=== PATIENT | female | born 1990 ===

== ENCOUNTER 2016-11-17 13:11 | Emergency (ER) | payer OTHER ==
[2016-11-17 15:10] LABS: RBC URINE 1 /hpf (0-3); URINE BILIRUBIN NEGATIVE (NEGATIVE); URINE BLOOD NEGATIVE (NEGATIVE); URINE COLOR Yellow (YELLOW); URINE GLUCOSE (UA) NORMAL (Normal); URINE KETONE NEGATIVE (NEGATIVE); URINE LEUKOCYTE ESTERASE 2+ Leu/uL (Negative); URINE PROTEIN NEGATIVE (NEGATIVE); URINE UROBILINOGEN NORMAL mg/dL (0.2-1.0); WBC URINE 16 /hpf (0-5)
--- NOTE | 2016-11-17 15:17 | C.PDOC ---
History Of Present Illness 26-year-old female, with no significant PMHx, presents to the ED for evaluation of pelvic pain which began when she was at work this morning. Patient denies fever, chills, nausea, vomiting, constipation, dysuria, hemturia. Patient states her last menstrual period was at the end of October, but she experienced an episode of bleeding again in the beginning of November. Time Seen by Provider: 11/17/16 14:19 Chief Complaint (Nursing): Abdominal Pain History Per: Patient History/Exam Limitations: no limitations Onset/Duration Of Symptoms: Hrs Current Symptoms Are (Timing): Still Present Location Of Pain/Discomfort: Other (pelvic pain ) Radiation Of Pain To:: None Quality Of Discomfort: "Pain" Associated Symptoms: denies: Fever, Chills, Nausea, Vomiting, Constipation, Urinary Symptoms (dysuria, hematuria ) Abnormal Vaginal Bleeding: No Past Medical History Reviewed: Historical Data, Nursing Documentation, Vital Signs Vital Signs: Last Vital Signs Temp 99.0 F 11/17/16 14:00 Pulse 98 H 11/17/16 14:00 Resp 18 11/17/16 14:00 BP 117/72 11/17/16 14:00 Pulse Ox 100 11/17/16 16:31 - Medical History PMH: No Chronic Diseases Surgical History: No Surg Hx Family History: States: Unknown Family Hx - Social History Hx Alcohol Use: No Hx Substance Use: No - Immunization History Hx Tetanus Toxoid Vaccination: No Hx Influenza Vaccination: No Hx Pneumococcal Vaccination: No Review Of Systems Constitutional: Negative for: Fever, Chills Gastrointestinal: Negative for: Nausea, Vomiting, Constipation Genitourinary: Positive for: Pelvic Pain. Negative for: Dysuria, Hematuria Physical Exam - Physical Exam Appears: Non-toxic, No Acute Distress Skin: Normal Color, Warm, Dry Head: Atraumatic, Normacephalic Eye(s): bilateral: Normal Inspection Oral Mucosa: Moist Neck: Supple Chest: Symmetrical, No Deformity Cardiovascular: Rhythm Regular Respiratory: Normal Breath Sounds Gastrointestinal/Abdominal: Tenderness (lower abdomen ), No Guarding, No Rebound Pelvic: No Vaginal Bleeding, No Vaginal Discharge, Cervical Motion Tenderness ( mild), No Adnexal Tenderness, No Mass, Other (+tenderness to pelvic region on palpation ) Extremity: Normal ROM Neurological/Psych: Normal Speech, Normal Cognition Gait: Steady ED Course And Treatment O2 Sat by Pulse Oximetry: 100 (on RA) Pulse Ox Interpretation: Normal Medical Decision Making Medical Decision Making: Impression: 26y/o female with pelvic pain Plan: * Urinalysis * reassess and disposition Progress: UA ordered and reviewed. Patient received Motrin PO, Rocephin IM, Tylenol PO, and Zithromax PO. Patient presents with pelvic pain with no other clear etiology. Will treat patient for STD, although diagnosis is unlikely. Will recommend that her partner be treated for STD as well. On reassessment, patient is resting comfortably, showing no signs of distress and reports an improvement in her symptoms. Patient is stable for discharge and is advised to follow up with her PMD within 1-2 days for further evaluation. Disposition - Disposition Referrals: [facility] [Outside] Disposition: HOME/ ROUTINE Disposition Time: 16:22 Condition: STABLE Prescriptions: Ibuprofen [Motrin] 600 mg PO TID #15 tab Instructions: Pelvic Pain in Women (ED) Forms: [facility] ([place]) - POA Present On Arrival: None - Clinical Impression Clinical Impression: Pelvic pain - Scribe Statement The provider has reviewed the documentation as recorded by the Scribe (Gregoria Morgan) Provider Attestation: All medical record entries made by the Scribe were at my direction and personally dictated by me. I have reviewed the chart and agree that the record accurately reflects my personal performance of the history, physical exam, medical decision making, and the department course for this patient. I have also personally directed, reviewed, and agree with the discharge instructions and disposition.
[2016-11-17] MEDS ORDERED: cefTRIAXone (Rocephin) 250 mg Inj IM STA (16:12)
[2016-11-17 16:35] VITALS: BP 108/73; PULSE 94; RESP 20; TEMP 99.5; O2SAT 99
== END 2016-11-17 16:42 | disposition home or self-care (01) ==
LOC: C.ER 13:11
DX: R10.2 Pelvic and perineal pain (principal)
CPT/HCPCS: 81001; 84703; 96372; 99284; J0696

== ENCOUNTER 2017-10-07 15:00 | Inpatient (IN) | payer OTHER ==
[2017-10-07 15:46] LABS: BASO % 0.3 % (0.0-2.0); EOS # 0.1 K/uL (0.0-0.7); EOS % 0.8 % (0.0-4.0); HEMOGLOBIN 13.1 g/dL (11.0-16.0); LYMPH # 1.6 K/uL (1.0-4.3); LYMPH % 16.7 % (20.0-40.0); MEAN CELL VOLUME 80.1 fL (81.0-99.0); MEAN CORPUSCULAR HEMOGLOBIN 27.2 pg (27.0-31.0); MEAN PLATELET VOLUME 10.3 fL (7.2-11.7); MONO # 0.9 K/uL (0.0-0.8); MONO % 8.9 % (0.0-10.0); NEUT # 7.2 K/uL (1.8-7.0); NEUT % 73.3 % (50.0-75.0); NRBC % 0.2 % (0.0-2.0); RBC 4.8 Mil/uL (3.80-5.20); RED CELL DISTRIBUTION WIDTH 16.2 % (11.5-14.5); WHITE BLOOD COUNT 9.9 K/uL (4.8-10.8)
[2017-10-07 15:53] LABS: SQUAMOUS EPITHIAL 20 /hpf (0-5); URINE BACTERIA RARE (<OCC); URINE BILIRUBIN NEGATIVE (NEGATIVE); URINE BLOOD NEGATIVE (NEGATIVE); URINE CLARITY Hazy (Clear); URINE COLOR Yellow (YELLOW); URINE GLUCOSE (UA) NORMAL (Normal); URINE LEUKOCYTE ESTERASE NEG Leu/uL (Negative); URINE PROTEIN 1+ mg/dL (NEGATIVE)
[2017-10-07 16:03] LABS: INR 1.1; PROTHROMBIN TIME 11.6 SECONDS (9.7-12.2)
[2017-10-07 16:04] LABS: ALB/GLOB RATIO 1.1 (1.0-2.1); ALBUMIN 3.4 g/dL (3.5-5.0); ALT/SGPT 24 U/L (9-52); AST/SGOT 20 U/L (14-36); BILIRUBIN,DIRECT 0.3 mg/dL (0.0-0.4); BLOOD UREA NITROGEN 11 mg/dL (7-17); CALCIUM 9.6 mg/dl (8.6-10.4); GFR AFRICAN-AMERICAN > 60; GFR NON-AFRICAN AMERICAN > 60; URIC ACID 8.2 mg/dL (2.2-7.5)
[2017-10-07] MEDS ORDERED: Lactated Ringer's 1,000 ML IV ONE (17:19)
[2017-10-07] MEDS ORDERED: cefOXitin IV 2 gm in Dextrose 2 GM/50 ML BAG IVPB ONE (17:19)
--- NOTE | 2017-10-07 17:28 | OBADHP ---
Datetime: 10/07/2017 17:23 IP Chief Complaint Other: blood pressure elevated 140s/90s at home, she feels "weird", has had PET b efore Admit Comment, IP Provider: risk of progressing PET, GHTN, prior c/s, term , for unschedule d section Pelvic Type - PN: Adequate Extremities - PN: Normal Abdomen - PN: Normal Back - PN: Normal Breast - PN: Normal Lungs - PN: Normal Heart - PN: Normal Thyroid - PN: Normal Neurologic - PN: Normal HEENT - PN: Normal General - PN: Normal FHR - Baseline A Provider: 145 Gestation - Est Wks by US: 37.2 Vital Signs Provider: Reviewed Vital Signs Provider Details: hypertension IP Chief Complaint: Uterine contractions NICHD Variability Prov Fetus A: Moderate 6-25bpm NICHD Accel Fetus A IP Provider: 15X15 FHR Category Provider Fetus A: Category I NICHD Decel Fetus A IP Provider: None Genitourinary Exam: Normal DTRs - PN: Normal EGA AdmitDate IP: 37.2 IP Adm Impression: Term, intrauterine IP Admit Plan: Initiate Section protocol
[2017-10-07] MEDS ORDERED: Sodium Citrate/Citric Acid 15 ml Sol PO ONE (17:32)
[2017-10-07] MEDS ORDERED: cefOXitin IV 2 gm in Saline 2 GM/50 ML BAG IVPB ONE (17:36)
[2017-10-07] MEDS ORDERED: Oxytocin 20 units in LR 2,000 ML IV ONE (17:42)
[2017-10-07] MEDS ORDERED: Morphine 1 mg/ml preservative-free Inj(Duramorph) ONE (18:09)
--- NOTE | 2017-10-07 18:27 | OBHP ---
Datetime: 10/07/2017 17:23 Gestation - Est Wks by US: 37.2 EGA AdmitDate IP: 37.2 Datetime: 10/07/2017 15:00 IP Adm Impression: Term, intrauterine ; Intact Membranes IP Chief Complaint Other: C/O fo BP at home 143/97 and feeling dizzie and lightheaded IP Admit Plan: Observation/Evaluation Admit Comment, IP Provider: 27 yo female with an IUP at 372/7 weeks with elevated BP's Denies SERRANO, BV or EP FHT's with mild tachycardia but adequate V _ R Probable Dehydration PIH labs ordered with IV Hydration Continuous Monitoring Dr. Sy aware of patient arrival and POC and agrees Pelvic Type - PN: Adequate Extremities - PN: Normal Abdomen - PN: Normal Back - PN: Normal Breast - PN: Not Done Lungs - PN: Normal Heart - PN: Normal Thyroid - PN: Normal Neurologic - PN: Normal HEENT - PN: Normal General - PN: Normal FHR - Baseline A Provider: 160 Membranes, Provider: Intact Contraction Comments Provider: Irregular IP Hx Assessment: No Records available Vital Signs Provider: Reviewed Vital Signs Provider Details: BP's around 130/90's and 120/80's IP Chief Complaint: Maternal discomfort; evaluation NICHD Variability Prov Fetus A: Moderate 6-25bpm NICHD Accel Fetus A IP Provider: 10X10 FHR Category Provider Fetus A: Category I NICHD Decel Fetus A IP Provider: None Dilatation, Provider: 0 Effacement, Provider: 0 Station, Provider: -3 Genitourinary Exam: Normal DTRs - PN: Normal
[2017-10-07] MEDS ORDERED: Oxycodone/Acetaminophen 5/325 mg Tab PO PRN (20:19)
--- NOTE | 2017-10-07 20:20 | OBDS ---
DELIVERY PERSONNEL Delivery Doctor: OBIE Urbina Nurse: Elsi Marie Spool Winder: Bj Naik RN Anesthesiologist: JASVIR MATERNAL INFORMATION Delivery Anesthesia: Spinal Medications in Delivery: pitocin 20 Estimated Blood Loss (ml): 700 Placenta Cultured: No Maternal Complications: Other Other Maternal Complications: PREVIOUS C/S INCREASED URIC ACID ON BLOOD DRAW H/O PREECLAMPSIA WITH FIRST Provider Comments: Dense adhesion from previous surgery superior to lower uterine segment not distur bed. adhesion of omentum to fundus and top of uterus, unable to see tubes and ovaries but felt saeid l. no bladder adhesions. meconium stained upon entering uterus and uterus was also stained. no meco nium with delivery. difficulty bring fetus out of pelvis and vacuum was applied with 1 pop off. suman seal placed for hemostasis. LABOR SUMMARY EDC: 10/26/2017 00:00 No. Babies in Womb: 1 Attempted: No Labor Anesthesia: None LABOR INFORMATION Reason for Induction: Not Applicable; Gest. HTN/PreEclampsia/Eclampsia Oxytocin: N/A Group B Beta Strep: Negative Antibiotics # of Doses: 1 Steroids Given: None Reason Steroids Not Administered: Not Applicable MEMBRANES Membranes Rupture Method: Artificial Rupture of Membranes: 10/07/2017 18:50 Length of Rupture (hrs): 0.07 Amniotic Fluid Color: Heavy Meconium Amniotic Fluid Amount: Moderate Amniotic Fluid Odor: Normal STAGES OF LABOR Stage 3 hrs: 0 Stage 3 min: 1 CSECTION DELIVERY Primary Indication: Repeat Elective Other Primary Indication: gestational hypertension CSection Urgency: Elective Labor: N/A Elective: Elective CSection Incision: Lower Uterine Transverse BABY A INFORMATION Delivery Date/Time: 10/07/2017 18:54 Method of Delivery: Born in Route : No : N/A Forceps: N/A Vacuum Extraction: Successful Shoulder Dystocia : No SHOULDER DYSTOCIA BABY A Delivery Date/Time: 10/07/2017 18:54 PRESENTATION/POSITION BABY A Presentation: Cephalic Cephalic Presentation: Vertex Vertex Position: Left Occipital Anterior Breech Presentation: N/A PLACENTA INFORMATION BABY A Placenta Delivery Time : 10/07/2017 18:55 Placenta Method of Delivery: Manual Removal Placenta Status: Delivered SCORES BABY A Heart Rate 1 min: >100 bpm Resp Effort 1 min: Good Cry Reflex Irritability 1 min: Cough or Sneeze or Pulls Away Muscle Tone 1 min: Active Motion Color 1 min: Body [place], Extremities Blue Resuscitation Effort 1 min: Tactile Stimulation SCORE 1 MIN: 9 Heart Rate 5 min: >100 bpm Resp Effort 5 min: Good Cry Reflex Irritability 5 min: Cough or Sneeze or Pulls Away Muscle Tone 5 min: Active Motion Color 5 min: Body [place], Extremities Blue Resuscitation Effort 5 min: N/A SCORE 5 MIN: 9 INFORMATION BABY A Gestational Age at Delivery: 37.2 Gestational Status: Term Outcome : Liveborn Condition : Stable Sex: Male IDENTIFICATION/MEDS BABY A ID Band Number: [id number] ID Band Location: Left Leg; Left Arm Sensor Applied: Yes Sensor Number: [id number] Sensor Location : Cord Clamp WEIGHT/LENGTH BABY A Infant Birthweight (gms): 3235 Weight (lb): 7 Infant Weight (oz): 2 Infant Length Inches: 19.00 Infant Length cms: 48.3 CORD INFORMATION BABY A No. Cord Vessels: 3 Nuchal Cord : Around Neck x1, Loose Nuchal Cord Other: loose times one Cord Blood Taken: Yes Suction: Mouth; Nose ASSESSMENT BABY A Complications: None Physical Findings at Delivery: Within Normal Limits Infant Respirations: Appears Normal Infant Care By: dr quintero Transferred To: Remains with Mother
[2017-10-08 09:37] LABS: BASO % 0.2 % (0.0-2.0); EOS % 0.3 % (0.0-4.0); HEMOGLOBIN 11.6 g/dL (11.0-16.0); LYMPH # 1.2 K/uL (1.0-4.3); LYMPH % 11.8 % (20.0-40.0); MEAN CELL VOLUME 80.9 fL (81.0-99.0); MEAN CORPUSCULAR HEMOGLOBIN 27.2 pg (27.0-31.0); MEAN CORPUSCULAR HGB CONC 33.6 g/dL (33.0-37.0); MEAN PLATELET VOLUME 10.8 fL (7.2-11.7); MONO # 0.7 K/uL (0.0-0.8); MONO % 6.7 % (0.0-10.0); NEUT # 8.3 K/uL (1.8-7.0); RBC 4.28 Mil/uL (3.80-5.20); RED CELL DISTRIBUTION WIDTH 16.1 % (11.5-14.5); WHITE BLOOD COUNT 10.3 K/uL (4.8-10.8)
[2017-10-08] MEDS: Multiple Vitamins Tab PO SCH (10:03)
[2017-10-09] MEDS: Multiple Vitamins Tab PO SCH (09:16)
[2017-10-09 09:52] VITALS: RESP 18
[2017-10-09] MEDS: Oxycodone/Acetaminophen 5/325 mg Tab PO PRN (16:30)
--- NOTE | 2017-10-09 18:03 | OBPPN ---
Datetime: 10/09/2017 17:44 PP Pain Prov: Within normal limits PP Nausea Prov: Denies PP Flatus Prov: Yes PP Breasts Prov: Normal PP Heart Prov: Normal PP Lungs Prov: Normal PP Abdomen/Uterus Prov: Normal PP Lochia Prov: Normal PP Vulva/Perineum Prov: Normal PP CVA Tenderness Prov: Normal PP Extremities Prov: Normal PP C/S Incision Prov: Normal PP Progress Prov: Normal PP Impression Prov: Normal progression PP Plan Prov: Continue present management PP Progress Note Prov: possible discharge tomorrow if improved Vital Signs Provider PP: Reviewed
--- NOTE | 2017-10-09 18:28 | OBDCSUM ---
Datetime: 10/09/2017 18:26 Discharged to, Provider: Home Follow up at, Provider: bin Goldberg Instr Activity: Normal activity Disch Instr Diet: Regular Discharge Instructions, Provider: Routine instructions given Discharge Diagnosis, Provider: Term Delivered Discharge Time: 10/10/2017 18:26 Follow up in weeks, Provider: 1 week Disch Referrals: None Contraception discussed, Prov: Yes Disch Activity Restrictions: Nothing in vagina - [place], tampons, douche
[2017-10-10 08:49] VITALS: BP 118/77; PULSE 98; TEMP 98.9; O2SAT 98
[2017-10-10] MEDS: Oxycodone/Acetaminophen 5/325 mg Tab PO PRN (09:18)
[2017-10-10] MEDS: Multiple Vitamins Tab PO SCH (09:19)
== END 2017-10-10 15:00 | disposition home or self-care (01) | DRG 766 ==
LOC: C.EROB 15:00 → C.4D 17:20 → C.4M 21:58
PROVIDERS: ADMIT Obstetrics & Gynecology; ATTEND Obstetrics & Gynecology
PROC: 10D00Z1 Extraction of Products of Conception, Low, Open Approach (ICD-10-PCS; principal; 2017-10-07)
DX: O13.4 Gestational [pregnancy-induced] hypertension without significant proteinuria, complicating childbirth (principal); O34.211 Maternal care for low transverse scar from previous cesarean delivery; O15.1 Eclampsia complicating labor; O69.81X0 Labor and delivery complicated by cord around neck, without compression, not applicable or unspecified; O99.284 Endocrine, nutritional and metabolic diseases complicating childbirth; E86.0 Dehydration; O77.0 Labor and delivery complicated by meconium in amniotic fluid; Z3A.37 37 weeks gestation of pregnancy; Z37.0 Single live birth